=== PATIENT | female | born 1975 | race Two or more races ===

== ENCOUNTER 2024-08-16 02:02 | Emergency (ER) | payer OTHER, SELFPAY ==
--- NOTE | 2024-08-16 | ECG_ITS ---
Test Reason : CHEST DISCOMFORT Blood Pressure : / mmHG Vent. Rate : 088 BPM Atrial Rate : 088 BPM P-R Int : 150 ms QRS Dur : 082 ms QT Int : 348 ms P-R-T Axes : 071 055 043 degrees QTc Int : 421 ms Normal sinus rhythm cannot exclude Anterior infarct , age undetermined ; could be related to body habitus and lead placement Abnormal ECG No previous ECGs available Referred By: Generic ED Physician Electronically Signed By:KIRBY HAMLIN
[2024-08-16 02:07] VITALS: BP 142/78; PULSE 108; RESP 16; TEMP 37.3; O2SAT 98; BMI 25.0
--- OUTSIDE RECORDS SUMMARY | 2024-08-16 02:27 | XMS_ITS | Continuity of Care Document ---
Author Organization [facility] ter Address [address] [place] [phone]- Care Team Providers Care Cloth Spreader Screen Printing Name Role Phone Kayla Choi MD Primary Care Physician Encounter [facility] Date(s): 07/21/21 - 07/21/[address] [address]- Discharge Disposition: A-D/C Home Attending Physician: Radha Hughes MD Admitting Physician: Radha Hughes MD Referring Physician: Not on Staff, Referring MD Allergies, Adverse Reactions, Alerts Substance Reaction Severity Status aspirin Active Motrin Active Medications amoxicillin 500 mg oral capsule 2 capsule = 1,000 mg, By Mouth, 3 times a day, for 5 days, # 30 capsule, 0 Refills, Acute 07/26/21 10:18:00 EDT, 07/21/21 10:18:00 EDT, [id number], Partial fill upon patient request if the prescription is for a schedule II opioid drug., 59, kg... Start Date: 07/21/21 Stop Date: 07/26/21 Status: Ordered Azithromycin 5 Day Dose Pack 250 mg oral tablet 1 pack/packet, By Mouth, Once, # 6 tablet, 0 Refills, Soft Stop, 07/21/21 10:17:00 EDT, Tablet, [id number], Partial fill upon patient request if the prescription is for a schedule II opioid drug., 59, kg, 12/30/19 6:17:00 EST, Dry Weight Start Date: 07/21/21 Status: Ordered Bactrim DS 800 mg-160 mg oral tablet 2 tablet, By Mouth, 2 times a day, # 28 tablet, 0 Refills, Maintenance, Tablet Start Date: 05/24/13 Stop Date: 05/31/13 Status: Ordered famotidine 20 mg oral tablet 1 tablet = 20 mg, By Mouth, 2 times a day, # 14 tablet, 0 Refills, Maintenance, 01/30/14 5:08:48, Tablet Start Date: 01/30/14 Stop Date: 02/06/14 Status: Ordered Keflex Capsule 500 mg, By Mouth, 3 times a day, Maintenance, 04/10/18 16:42:27 EDT Start Date: 04/10/18 Stop Date: 04/20/18 Status: Ordered Nexium 20 mg oral enteric coated capsule 1 capsule = 20 mg, By Mouth, Daily, # 20 capsule, 0 Refills, Maintenance Start Date: 09/20/12 Status: Ordered Nexium 20 mg oral enteric coated capsule 1 capsule = 20 mg, By Mouth, Daily, # 20 capsule, 0 Refills, Maintenance, EC Capsule Start Date: 09/20/12 Status: Ordered omeprazole 20 mg oral delayed release tablet 1 tablet = 20 mg, By Mouth, Daily, # 14 tablet, 0 Refills, Maintenance, 01/30/14 5:08:56, EC Tablet Start Date: 01/30/14 Stop Date: 02/13/14 Status: Ordered Percocet-5/325 325 mg-5 mg oral tablet 1 tablet, By Mouth, Every 4 hours, PRN Pain , Severe, # 18 tablet, 0 Refills, Maintenance Start Date: 06/17/13 Stop Date: 06/20/13 Status: Ordered Percocet-5/325 325 mg-5 mg oral tablet 2 tablet, By Mouth, Every 6 hours, PRN Pain, for breakthrough pain, # 13 tablet, 0 Refills, Maintenance, Tablet Start Date: 03/20/13 Status: Ordered Zofran ODT 4 mg oral tablet, disintegrating See Instructions, PRN Nausea & Vomiting, 1 tablet By Mouth Every 4 hours as needed. May substitute for oral tablets if required by insurance, # 16 Doses, 0 Refills, Maintenance, 01/30/14 5:08:46,Tablet Start Date: 01/30/14 Status: Ordered Results Orders for Microbiology Reports Name Date Group A Strep Screen and Culture 07/21/21 Microbiology Reports TEST:Group A Strep Screen and Culture STATUS:Unauthenticated BODY SITE: SOURCE:THROAT COLLECTED DATE/TIME:07/21/21 9:23 AM Group A Strep Screen and Culture SPECIMEN DESCRIPTION : THROAT SWAB SPECIAL REQUESTS : NONE DIRECT EXAM : RAPID GROUP A RESULT IS NEGATIVE, REFER TO CULTURE RESULT. REPORT STATUS : PRELIMINARY REPORT Radiology Reports * Exam Date Time Procedure Performing Provider Status 07/21/21 5:37 AM Chest Portable Sally Thompson; Aut h (Verified) Notes: (Chest Portable) Reason For Exam: Cough RESULT: Chest Portable Chest Portable Hx of Present Illness: Reports body aches, SOB, sweats chills, runny nose, sinus pressure, cough, no taste and diarrhea for 3wks. Got first dose vaccine last. Had contact with covid + friend.; Reason: Cough; Clinical Question(s): Other: COMPARISON: 06/30/2020 10/15/2020 FINDINGS: LINES AND TUBES: None. LUNGS AND PLEURA: Possible subtle hazy focal airspace disease developing in the mid right chest. Otherwise clear lungs. No focal consolidation. Large pleural effusion. No pneumothorax. HEART, MEDIASTINUM AND JACY: Heart is normal in size. Normal upper mediastinal and hilar contour. BONES AND SOFT TISSUES: No acute abnormality. Multiple surgical clips in the right upper quadrant/epigastrium. IMPRESSION: Possible subtle developing focal airspace disease in the mid right chest, which could be secondary to early or atypical pneumonia. A [place] message has been communicated via the [employer] system on 07/21/2021 8:44 AM, Message ID [id number]. WSN: [id number] Ordering Physician: Stephanie Jimenez Dictated By: Rinku Gill MD Dictated Date/Time: 07/21/21 8:44 am Reviewed By: Rinku Gill MD Signed By: Rinku Gill MD Signed Date/Time: 07/21/21 8:44 am Transcribed By: SOTERO Transcribed Date/Time: 07/21/21 8:41 am Vital Signs Most recent to oldest [Reference Range]: 1 2 3 Oxygen Saturation [94-100 %] 100 % (07/21/21 10:21 AM) 100 % (07/21/21 9:28 AM) 100 % (07/21/21 8:10 AM) Pulse Rate [55-90 bpm] 68 bpm (07/21/21 10:21 AM) 74 bpm (07/21/21 9:28 AM) 62 bpm (07/21/21 8:10 AM) Blood Pressure [90-138/55-84 mm Hg] 102/65mm Hg (07/21/21 10:21 AM) 100/52mm Hg (07/21/21 9:28 AM) 108/63mm Hg (07/21/21 8:10 AM) Respiratory Rate [16-30 br/min] 18 br/min (07/21/21 10:21 AM) 16 br/min (07/21/21 9:28 AM) 15 br/min *L* (07/21/21 8:10 AM) Temperature [96.8-100.4 DegF] 98.0 DegF (07/21/21 8:10 AM) 98.5 DegF (07/21/21 5:00 AM) Mode of Delivery (Oxygen) Room air (07/21/21 10:21 AM) Room air (07/21/21 9:28 AM) Room air (07/21/21 8:10 AM) Blood pressure sites Arm, left (07/21/21 10:21 AM) Arm, left (07/21/21 9:28 AM) Arm, left (07/21/21 8:10 AM) Temperature Route Oral (07/21/21 8:10 AM) Oral (07/21/21 5:00 AM)
--- OUTSIDE RECORDS SUMMARY | 2024-08-16 02:27 | XMS_ITS | Continuity of Care Document ---
Author Organization [facility] ter Address [address] [place] [address]- Care Team Providers Care Coater Hand Name Role Phone Jimbo NIETO, Kayla Dos Santos Primary Care Physician Encounter [facility] [place] Date(s): 10/15/19 - 10/15/[address] [address]- [facility] Encounter Diagnosis Bronchitis(Final) - 10/15/19 Acute laryngopharyngitis(Final) - 10/15/19 Discharge Disposition: A-D/C Home Attending Physician: Gurpreet NIETO, Yuliya Santana Admitting Physician: Yuliya Vázquez MD Referring Physician: Not on Staff, Referring MD Allergies, Adverse Reactions, Alerts Substance Reaction Severity Status aspirin Active Motrin Active Medications Bactrim DS 800 mg-160 mg oral tablet [...] Date Group A Strep Screen and Culture 9 Microbiology Reports TEST:Group A Strep Screen and Culture STATUS:Unauthenticated BODY SITE: SOURCE:THROAT COLLECTED DATE/TIME:10/15/19 6:45 AM Group A Strep Screen and Culture SPECIMEN DESCRIPTION : THROAT SWAB SPECIAL REQUESTS : NONE DIRECT EXAM : RAPID GROUP A RESULT IS NEGATIVE, REFER TO CULTURE RESULT. REPORT STATUS : PRELIMINARY REPORT Radiology Reports * Exam Date Time Procedure Performing Provider Status 10/15/19 8:03 AM Chest 2 Views Frontal and Lat Lor Vincent; Auth (Verified) Notes: (Chest 2 Views Frontal and Lat) Reason For Exam: Shortness of Breath RESULT: Chest 2 Views Frontal and Lat Chest 2 Views Frontal and Lat INDICATION / CLINICAL QUESTION: chest pain, SOB, throat pain, and feeling unwell since Sunday. Reports was seen at [facility] on sunday and given albuterol and prednisone but continues with chest pain andSOB; COMPARISON: None. FINDINGS: LINES AND TUBES: None. LUNGS AND PLEURA: Clear lungs. Normal pulmonary vascularity. No pleural effusion. No pneumothorax. HEART, MEDIASTINUM AND JACY: Normal. BONES AND SOFT TISSUES: Upper abdominal surgical clips but otherwise normal. IMPRESSION: Normal. WSN: [id number] Dictated By: Kyle Justin MD Dictated Date/Time: 10/15/19 8:06 am Reviewed By: Kyle Justin MD Signed By: Kyle Justin MD Signed Date/Time: 10/15/19 8:06 am Transcribed By: SOTERO Transcribed Date/Time: 10/15/19 8:04 am Vital Signs Most recent to oldest [Reference Range]: 1 2 Oxygen Saturation [94-100 %] 99 % (10/15/19 10:38 AM) 100 % (10/15/19 6:45 AM) Pulse Rate [55-90 bpm] 75 bpm (10/15/19 10:38 AM) 77 bpm (10/15/19 6:45 AM) Blood Pressure [90-138/55-84 mm Hg] 114/ 65mm Hg (10/15/19 10:38 AM) 121/84mm Hg (10/15/19 6:45 AM) Respiratory Rate [16-30 br/min] 16 br/mi n (10/15/19 10:38 AM) 18 br/min (10/15/19 6:45 AM) Temperature [96.8-100.4 DegF] 98.0 DegF (10/15/19 6:45 AM) Mode of Delivery (Oxygen) Room air (10/15/19 10:38 AM) Room air (10/15/19 6:45 AM) Blood pressure sites Arm, right (10/15/19 10:38 AM) Arm, left (10/15/19 6:45 AM) Temperature Route Oral (10/15/19 6:45 AM)
--- OUTSIDE RECORDS SUMMARY | 2024-08-16 02:27 | XMS_ITS | Continuity of Care Document ---
Author Organization [facility] ter Address [address] [place] [phone]- Care Team Providers Care Director Fixed Income Name Role Phone Jimbo NIETO, Kayla Dos Santos Primary Care Physician Encounter [facility] [place] Date(s): 12/30/19 - 12/30/[address] [address]- [facility] Encounter Diagnosis Viral syndrome(Final) - 12/30/19 Discharge Disposition: A-D/C Home Attending Physician: Shu Alexander MD Admitting Physician: Shu Alexander MD Referring Physician: Not on Staff, Referring [...] 01/30/14 5:08:46,Tablet Start Date: 01/30/14 Status: Ordered Vital Signs Most recent to oldest [Reference Range]: 1 2 3 Weight 59 kg (12/30/19 6:17 AM) Oxygen Saturation [94-100 %] 100 % (12/30/19 1:38 PM) 100 % (12/30/19 12:08 PM) 100 % (12/30/19 8:17 AM) Pulse Rate [55-90 bpm] 68 bpm (12/30/19 1:38 PM) 76 bpm (12/30/19 12:08 PM) 69 bpm (12/30/19 8:17 AM) Blood Pressure [90-138/55-84 mm Hg] 98/50mm Hg (12/30/19 1:38 PM) 104/55mm Hg (12/30/19 12:08 PM) 104/56mm Hg (12/30/19 8:17 AM) Respiratory Rate [16-30 br/min] 16 br/min (12/30/19 1:38 PM) 14 br/min *L* (12/30/19 12:08 PM) 16 br/min (12/30/19 8:17 AM) Temperature [96.8-100.4 DegF] 98.2 DegF (12/30/19 12:08 PM) 97.8 DegF (12/30/19 8:17 AM) 97.9 DegF (12/30/19 6:17 AM) Mode of Delivery (Oxygen) Room air (12/30/19 1:38 PM) Room air (12/30/19 12:08 PM) Room air (12/30/19 8:17 AM) Temperature Route Oral (12/30/19 12:08 PM) Oral (12/30/19 8:17 AM) Oral (12/30/19 6:17 AM) Dry Weight 59 kg (12/30/19 6:17 AM)
--- OUTSIDE RECORDS SUMMARY | 2024-08-16 02:27 | XMS_ITS | Continuity of Care Document ---
Author Organization [facility] Address [address] [place] [phone]- Care Team Providers Care Aircraft Skin Burnisher Name Role Phone Jimbo NIETO, Kayla Dos Santos Primary Care Physician [place] [facility] [place] 12/12/23 - 12/12/[address] [address] Attending Physician: Susi Garland NP Allergies, Adverse Reactions, Alerts Substance Reaction Severity Status aspirin Active Motrin Active Medications Azithromycin 5 Day Dose Pack 250 mg oral tablet 1 pack/packet, By Mouth, Once, # 6 tablet, 0 Refills, Soft Stop, 07/21/21 10:17:00 EDT, Tablet, [id number], Partial fill upon patient request if the [...] 01/30/14 5:08:46,Tablet Start Date: 01/30/14 Status: Ordered Patient Care team information Care Team Personnel Name: Jimbo NIETO , Kayla Dos Santos Position: S Physician - Infectious Disease Member Role: PCP Address: Address: [address] [place] [address]
[2024-08-16 03:08] LABS: IDNOW Serial# 08D9AD1C; Strep A Nucleic Acid Positive (Negative)
[2024-08-16 03:32] LABS: Influenza A PCR NEGATIVE (Negative); Influenza B PCR NEGATIVE (Negative); Resp Syncy Virus RNA Qual PCR NEGATIVE (Negative); SARS COV2 PCR INHOUSE NEGATIVE (Negative)
--- NOTE | 2024-08-16 03:51 | ED.CHESTPAIN ---
HPI - Chest Pain General Chief Complaint: Chest Pain Stated Complaint: fever Time Seen by Provider: 08/16/24 03:36 Source: patient Mode of arrival: ambulatory Limitations: no limitations History of Present Illness ED Provider: Dr. Guzmán HPI narrative: patient is a 48yo female with no significant PMHx who presents with not feeling well for the past 5 days. She states that she has had headache, sore throat and chest pain. She comes to the ED tonight because her Apple watch was reading above 110 all night. Related Data Previous Rx's ?Medication ?Instructions ?Recorded amoxicillin 875 mg tablet 875 mg PO BID #20 tabs 08/16/24 Allergies Allergy/AdvReac Type Severity Reaction Status Date / Time aspirin Allergy Unknown tachycardia Uncoded 08/16/24 02:11 ,anxiety Review of Systems Review of Systems: Yes all other systems are reviewed and are negative Neurologic: Denies Sensory deficit (Neuro) [facility] Social History Social History Smoked in Last 30 Days: No Use of substances other than those prescribed or required for medical reasons: No Advance Directives: No Advance Directives Information Provided: No Do you have a plan to hurt others: No Plan Physical Exam Vital Signs: Vital Signs: Last Vital Signs Temp 99.1 F 08/16/24 02:07 Pulse 108 H 08/16/24 02:07 Resp 16 08/16/24 02:07 BP 142/78 H 08/16/24 02:07 Pulse Ox 98 08/16/24 02:07 O2 Del Method Room Air 08/16/24 02:07 BMI result Body Mass Index 25.0 Const: General: healthy appearing Nutritional Appearance: average body habitus Orientation/consciousness: oriented to person and patient oriented x3 Limitations: no limitations HEENT: Head: Yes normal to inspection Ears: external ears normal General nose exam: Normal external nose present Mouth: Normal oral and palatal mucosa present and oropharynx normal Throat: Yes posterior oropharynx normal Eyes: General: appearance normal, both eyes and all related structures Neck: Other: supple Neck: Yes normal visual inspection Chest: Chest palpation & inspection: normal inspection of the chest Resp: Auscultation: clear to auscultation bilaterally Cardio: Jugular venous distension: no JVD Rate: regular rate Rhythm: regular rhythm Heart sounds: S1 normal heart sound present and S2 normal heart sound present GI: Inspection: Yes normal to inspection Palpation (GI): Soft to palpation, nontender and No hepatosplenomegaly present Auscultation: normal bowel sounds : General: Yes no CVA tenderness Back/Spine/Pelvis: Back: no CVA tenderness Skin: General skin exam: no rashes or lesions noted Neuro: General: oriented to person and patient oriented x3 Cranial nerves: Yes CN's II-XII intact bilaterally Motor exam (neuro): 5/5 motor strength present throughout Sensory Exam: No Sensory deficit (Neuro) Extrem: General: Yes normal to inspection Psych: Appearance: grossly normal Course Reevaluation(s) Reevaluation #1: Patient with tactile fever, tachycardia and now positive strep, will dc on amoxicillin for strep throat. Time: 03:56 Medications Administered Discontinued Medications Generic Name Dose Route Start Last Admin Trade Name Freq PRN Reason Stop Dose Admin Amoxicillin 500 mg 08/16/24 03:53 08/16/24 03:59 Amoxicillin 500 Mg Capsule PO 08/16/24 03:54 500 mg ONCE ONE Administration Medical Decision Making Differential Diagnosis Differential Diagnoses: The differential diagnosis associated with the presentation includes (cardiac arrhythmia, flu, covid, rsv, strep throat, tachycardia) Lab Data Labs: Lab Results 08/16/24 08/16/24 Range/Units 02:48 02:49 Influenza Type A (PCR) NEGATIVE (Negative) Influenza Type B (PCR) NEGATIVE (Negative) RSV RNA Qual (PCR) NEGATIVE (Negative) SARS-CoV-2 RNA (RT-PCR) NEGATIVE (Negative) S. pyogenes GrpA PAT Positive A (Negative) Independent Interpretation I performed an independent interpretation of an: EKG (sinus [address] or twave changes) Discharge Plan Discharge Clinical Impression: Strep pharyngitis, Atrial tachycardia Patient Disposition: Home, Self-Care Instructions: Pharyngitis (ED), Strep Throat (ED) Prescriptions: New amoxicillin 875 mg tablet 875 mg PO BID Qty: 20 0RF Referrals: Physician,None [Primary Care Provider] - 1 week Print Language: Arabic
[2024-08-16] MEDS: Amoxicillin 500 MG CAPSULE PO (03:59)
--- NOTE | 2024-08-16 04:00 | PC.NURSE ---
pt medicated per mar, provider into discuss discharge plan.
[2024-08-16 04:04] VITALS: BP 110/64; PULSE 85; RESP 16; TEMP 37.4; O2SAT 98
--- NOTE | 2024-08-16 04:06 | PC.NURSE ---
Reviewed discharge instruction with pt, pt verbalized understanding. no sign distress upon discharge. Pt ambulating with a steady gait.
== END 2024-08-16 04:08 | disposition home or self-care (01) ==
PROVIDERS: Emergency Provider Emergency Medicine
DX: J02.0 Streptococcal pharyngitis (principal); I47.19 Other supraventricular tachycardia; R50.9 Fever, unspecified; Z03.818 Encounter for observation for suspected exposure to other biological agents ruled out; R05.9 Cough, unspecified
CPT/HCPCS: 0241U; 87651; 93005; 99283; 99284

== ENCOUNTER → 2024-08-16 02:35 | Outpatient (BNV) | payer OTHER, SELFPAY | PROVIDERS: Emergency Provider Emergency Medicine; Visit Provider Internal Medicine | DX: R94.31 Abnormal electrocardiogram [ECG] [EKG] (principal) | CPT/HCPCS: 93010 ==

== ENCOUNTER 2025-02-17 01:16 | Emergency (ER) | payer OTHER, SELFPAY ==
--- NOTE | ~2025-02-17 | XR_ITS ---
CLINICAL HISTORY: abd pain, no bm x 5 days 1 view abdomen Comparison: None Findings: Mild stool burden. No bowel obstruction. No pneumoperitoneum or pneumatosis. No abnormal calcifications. No acute fractures. IMPRESSION: Mild stool burden. No bowel obstruction. This document has been electronically signed by: Arielle Whittington MD on 02/17/2025 02:57:42
[2025-02-17 01:27] VITALS: BP 133/78; PULSE 66; RESP 16; TEMP 36.7; O2SAT 99; BMI 25.6
[2025-02-17 01:53] LABS: Hematocrit 38.6 % (37.0-47.0); Hemoglobin 12.1 g/dl (12.0-16.0); Mean Corpuscular HGB Conc 31.3 g/dl (31.0-35.0); Mean Corpuscular Hemoglobin 28.9 pg (27.0-33.0); Mean Corpuscular Volume 92.1 fL (80.0-98.0); Mean Platelet Volume 13.9 fL (9.4-12.3); Platelet Count 172 X10*3/uL (160-400); Red Blood Count 4.19 X10*6/uL (4.20-5.50); Red Cell Distribution Width 12.7 % (11.0-16.0)
[2025-02-17 01:57] LABS: PLT ABN DIST 1; WBC ABN SCTR FOR CBC 1; White Blood Count 9.4 X10*3/uL (4.8-10.8)
[2025-02-17 02:03] LABS: Alanine Aminotransferase 16 U/L (0-31); Albumin Level 4.3 g/dL (3.5-5.0); Anion Gap 13 (12-20); Aspartate Amino Transferase 19 U/L (5-31); Bilirubin Total 0.8 mg/dL (0.0-1.0); Blood Urea Nitrogen 8 mg/dL (9-16); Calcium 9.1 mg/dL (8.4-10.2); Carbon Dioxide 25 mmol/L (22-29); Chloride 106 mmol/L (96-108); Creatinine Clr Calc Pharmacy 83.6; Estimated Glomerular Filt Rate > 60; Glucose Random 91 mg/dL (60-115); Lipase 19 U/L (8-78); Potassium 3.6 mmol/L (3.3-5.1); Sodium 140 mmol/L (135-145); Total Protein 7.3 g/dL (6.5-8.0)
[2025-02-17 02:12] LABS: Basophils Abs Manual 0.1 X10*3/uL (0.0-0.2); Basophils Percent Manual 1 % (0-2); Burr Cells 1+ (0-2) /OIF; Eosinophils Absolute Manual 0.8 X10*3/uL (0.0-0.4); Eosinophils Percent Manual 9 % (0-4); Lymphocytes Absolute Manual 4.6 X10*3/uL (1.2-4.9); Lymphocytes Percent Manual 49 % (20-40); Monocytes Absolute Manual 0.7 X10*3/uL (0.1-1.2); Monocytes Percent Manual 7 % (2-11); Neutrophils Percent Manual 34 % (45-73); RBC Morphology NOTED
[2025-02-17 02:13] LABS: Band Neutrophils Percent 0 % (3-5); Large Platelet PRESENT; Neutrophils Absolute Manual 3.2 X10*3/uL (2.0-8.3); Platelet Estimate NORMAL (NORMAL); Platelet Morphology Comment NOTED
[2025-02-17 02:30] LABS: Alkaline Phosphatase 60 U/L (39-117)
--- NOTE | 2025-02-17 02:42 | ED_ITS ---
HPI - Abdominal Pain General Chief Complaint: Abdominal Pain Stated Complaint: stomach pain Time Seen by Provider: 02/17/25 02:02 Source: patient Mode of arrival: ambulatory Limitations: no limitations History of Present Illness ED Provider: Angela Vance NP HPI narrative: Patient is a 41-year-old female who presents emergency department for evaluation. She reports over the past week she began experiencing generalized discomfort and bloating to the abdomen. Typically exacerbated after eating. Had some mild nausea associated with this. She reports that she has not had a bowel movement in the past 5 days, today she took an [id number] bicycle total tablet without having a bowel movement. She states that this evening she experienced a mild pain diffusely across her lower back. She denies fevers, chills, chest pain, shortness of breath, vomiting, diarrhea, hematochezia, melena, dysuria, urinary frequency/urgency/hesitancy, hematuria, pelvic pain or abnormal vaginal discharge. Related Data Previous Rx's ?Medication ?Instructions ?Recorded amoxicillin 875 mg tablet 875 mg PO BID #20 tabs 08/16/24 cefuroxime axetil 250 mg tablet 250 mg PO BID #10 tabs 02/17/25 docusate sodium 100 mg capsule 100 mg PO DAILY #30 caps 02/17/25 (Colace) polyethylene glycol 3350 17 17 g PO DAILY #119 grams 02/17/25 gram/dose oral powder (ClearLax) Allergies Allergy/AdvReac Type Severity Reaction Status Date / Time aspirin Allergy Mild tachycardia Uncoded 02/17/25 01:32 ,anxiety Review of Systems Review of Systems Yes all other systems are reviewed and are negative [facility] Past Medical History Attestation statement: The following information was validated with the patient. Source: old records reviewed Social History Social History Smoked in Last 30 Days: No Use of substances other than those prescribed or required for medical reasons: No Advance Directives: No Advance Directives Information Provided: Yes Do you have a plan to hurt others: No Plan Patient : No Physical Exam ED Vital Signs: Vital Signs - 24 hr 02/17/25 01:27 Temperature 98.1 F Pulse Rate 66 Respiratory Rate 16 Blood Pressure 133/78 Pulse Oximetry 99 Oxygen Delivery Method Room Air BMI result Body Mass Index 25.6 Appearance: Alert.?Oriented to person, place and time. No acute distress.?Normal affect.?? Neck: Normal inspection.? Neck supple.?? CVS: Heart sounds normal. Normal heart rate and rhythm.? Pulses normal.?? Respiratory: No respiratory distress.? Lung sounds clear to auscultation bilaterally?? Abdomen: Soft mild diffuse tenderness. No rigidity or guarding. No rebound tenderness at McBurney's point. Negative psoas sign. Negative Rovsing sign. Negative Chiang sign. No CVAT. Normoactive bowel sounds. No pulsatile mass.?? Back: No rashes or lesions. No midline tenderness, step-offs, deformities. No paraspinal muscle tenderness or spasms. Skin: Skin warm and dry.? Normal skin color.? Extremities: No lower extremity edema.? Neuro: Moves all extremities spontaneously. Sensation intact bilaterally. Ambulates with normal steady gait. Medical Decision Making Medical Decision Making MDM Narrative: Patient is a 49-year-old female who presents emergency department for evaluation of abdominal pain/bloating as per HPI and lack of bowel movement over the past 5 days. Abdominal examination reveals mild diffuse tenderness, no CVA tenderness, overall without signs of systemic toxicity found to be afebrile without tachycardia, no hypotension. Examination not consistent with acute abdomen, no peritoneal signs; no tenderness upon light palpation, no rebound tenderness, no guarding, no percussive tenderness. Low suspicion at this time for acute surgical abdomen. No associated chest pain shortness of breath or URI symptoms to suggest pneumonia, no clinical evidence of DVT or personal history of VTE/malignancy to suggest pulmonary embolism. No high-risk past medical history to suggest myocardial infarction and is without chest pain, less likely AAA, aortic dissection. No distinct right upper quadrant abdominal tenderness upon palpation, negative Chiang sign, lower suspicion for acute hepatobiliary etiology, normal LFTs and lipase. Denies excessive alcohol consumption, history of diabetes, lower suspicion acute pancreatitis. No rebound tenderness at McBurney's point, rigidity, guarding to suggest acute appendicitis. No tenderness of the left lower quadrant nor associated nausea, vomiting, diarrhea, hematochezia or melena to suggest diverticulitis or GI bleed. No appreciable hernia to suggest strangulation/incarceration. Lower suspicion for bowel obstruction. No distention or rigidity to suggest GI perforation. She denied any notable symptoms however she does have 1+ leukocyte esterase urine WBCs and 2+ urine bacteria present without squamous epithelial cells, possibly be secondary to urinary tract infection, will send prescription for cefuroxime to pharmacy as well. KUB revealing a mild stool burden, does not appear to have any food bolus in the rectal vault that would require disimpaction. She will be provided with MiraLax and senna/docusate in the emergency department. Differential Diagnosis Differential Diagnoses: The differential diagnosis associated with the presentation includes (See narrative above) Admission/Observation Consideration of admission/observation: Escalation of care including admission/observation considered (See narrative above ) Lab Data MDM Lab Attestation statement: I reviewed the patient's lab results. (See above) Leukocytosis or anemia. No thrombocytopenia. No electrolyte derangement. No CATHI. LFTs unremarkable. 02/17/25 01:37 02/17/25 01:37 Labs: Lab Results 02/17/25 02/17/25 Range/Units 01:37 03:07 WBC 9.4 (4.8-10.8) X10*3/uL RBC 4.19 L (4.20-5.50) X10*6/uL Hgb 12.1 (12.0-16.0) g/dl Hct 38.6 (37.0-47.0) % MCV 92.1 (80.0-98.0) fL MCH 28.9 (27.0-33.0) pg MCHC 31.3 (31.0-35.0) g/dl RDW 12.7 (11.0-16.0) % Plt Count 172 (160-400) X10*3/uL MPV 13.9 H (9.4-12.3) fL Immature Gran % (Auto) Cancelled Neut % (Auto) Cancelled Lymph % (Auto) Cancelled Daniels % (Auto) Cancelled Eos % (Auto) Cancelled Baso % (Auto) Cancelled Lymph # (Auto) Cancelled Daniels # (Auto) Cancelled Eos # (Auto) Cancelled Baso # (Auto) Cancelled Abs Immat Gran (auto) Cancelled Absolute Neuts (auto) Cancelled Absolute Nucleated RBC 0.000 (0.0-0.012) X10*3/uL Nucleated RBC % (auto) 0.0 (0.0-0.2) /100WBC Neutrophils % (Manual) 34 L (45-73) % Band Neutrophils % 0 L (3-5) % Lymphocytes % (Manual) 49 H (20-40) % Monocytes % (Manual) 7 (2-11) % Eosinophils % (Manual) 9 H (0-4) % Basophils % (Manual) 1 (0-2) % Abs Neuts (Manual) 3.2 (2.0-8.3) X10*3/uL Lymphocytes # (Manual) 4.6 (1.2-4.9) X10*3/uL Monocytes # (Manual) 0.7 (0.1-1.2) X10*3/uL Eosinophils # (Manual) 0.8 H (0.0-0.4) X10*3/uL Basophils # (Manual) 0.1 (0.0-0.2) X10*3/uL Platelet Estimate NORMAL (NORMAL) Large Platelets PRESENT Plt Morphology Comment NOTED RBC Morphology NOTED [place] Cells 1+ (0-2) /OIF Sodium 140 (135-145) mmol/L Potassium 3.6 (3.3-5.1) mmol/L Chloride 106 (96-108) mmol/L Carbon Dioxide 25 (22-29) mmol/L Anion Gap 13 (12-20) BUN 8 L (9-16) mg/dL Creatinine 0.72 (0.5-1.4) mg/dL Estim Creat Clear Calc 83.6 Estimated GFR > 60 Random Glucose 91 (60-115) mg/dL Calcium 9.1 (8.4-10.2) mg/dL Total Bilirubin 0.8 (0.0-1.0) mg/dL AST 19 (5-31) U/L ALT 16 (0-31) U/L Alkaline Phosphatase 60 (39-117) U/L Total Protein 7.3 (6.5-8.0) g/dL Albumin 4.3 (3.5-5.0) g/dL Lipase 19 (8-78) U/L Urine Color Yellow Urine Appearance Clear Urine pH 5.5 (5.0-9.0) Ur Specific [place] 1.020 (1.005-1.025) Urine Protein Negative (Neg-Trace) mg/dL Urine Glucose (UA) Negative (Negative) mg/dL Urine Ketones Negative (Negative) mg/dL Urine Blood Moderate (2+) H (Negative) Urine Nitrite Negative (Negative) Ur Leukocyte Esterase Small (1+) H (Negative) Urine RBC 0-2 (0-2) /HPF Urine WBC 21-50 H (0-5) /HPF Ur Squamous Epith Cells 0-2 (0-2) /HPF Urine Bacteria 2+ (None Seen) Hyaline Casts 0-2 (0-2) /LPF Urine Test NEGATIVE (NEGATIVE) Radiology Impression Discussion of test interpretation with radiology: I have reviewed the radiologist's reading. Radiologist Impression: 1 view abdomen Comparison: None Findings: Mild stool burden. No bowel obstruction. No pneumoperitoneum or pneumatosis. No abnormal calcifications. No acute fractures. IMPRESSION: Mild stool burden. No bowel obstruction. External Record Review External record reviewed: Outpatient record Discharge Plan Discharge Clinical Impression: Constipation, Urinary tract infection Patient Disposition: Home, Self-Care Instructions: Constipation (DC), Urinary Tract Infection in Women (DC) Additional Instructions: Increase dietary fiber, be sure that you are drinking at least 8 glasses of water daily, 8-12 oz each. I have sent prescription to pharmacy for MiraLax in addition to Colace to take daily to mason helper in bowel movement. Urine testing shows concern for a mild infection, prescription for antibiotic has been sent to your pharmacy please complete the entire course. Follow-up with your primary care doctor. Return with any new or worsening symptoms or concerns. Prescriptions: New polyethylene glycol 3350 [ClearLax] 17 gram/dose powder 17 g PO DAILY Qty: 119 0RF docusate sodium [Colace] 100 mg capsule 100 mg PO DAILY Qty: 30 0RF cefuroxime axetil 250 mg tablet 250 mg PO BID Qty: 10 0RF No Action amoxicillin 875 mg tablet 875 mg PO BID Qty: 20 0RF Referrals: Physician,None [Primary Care Provider] - Print Language: Belarusian
[2025-02-17 03:17] LABS: Appearance Urine Clear; Color Urine Yellow; Glucose Urine UA Negative (Negative); Leukocyte Esterase Urine Small (1+) (Negative); Nitrite Urine Negative (Negative); PH 5.5 (5.0-9.0); UMIC TRIGGER UACC YES; Urine Blood Moderate (2+) (Negative); Urine Ketones Negative (Negative); Urine Protein Negative (Neg-Trace)
[2025-02-17 03:18] LABS: Urine Pregnancy NEGATIVE (NEGATIVE)
[2025-02-17 03:19] LABS: UPreg QC Valid YES
[2025-02-17 03:37] LABS: Bacteria Urine 2+ (None Seen); Hyaline Casts Urine 0-2 /LPF (0-2); RBC Urine 0-2 /HPF (0-2); Squamous Epithelial Cell Urine 0-2 /HPF (0-2); UACC Culture Trigger YES; WBC Urine 21-50 /HPF (0-5)
[2025-02-17] MEDS: Sennosides/Docusate Sodium TABLET 1 TAB PO (03:42)
[2025-02-17] MEDS: polyethylene glycoL 3350 17 GM POWD.PACK PO (03:42)
[2025-02-17 03:54] VITALS: BP 106/63; PULSE 66; RESP 14; TEMP 36.6; O2SAT 99
[2025-02-17 04:06] VITALS: BP 106/63; PULSE 66; RESP 14; TEMP 36.6; O2SAT 99
== END 2025-02-17 04:07 | disposition home or self-care (01) ==
PROVIDERS: Nurse Practitioner Family; Emergency Provider Emergency Medicine
DX: K59.00 Constipation, unspecified (principal); N39.0 Urinary tract infection, site not specified; Z79.899 Other long term (current) drug therapy
CPT/HCPCS: 36415; 74018; 80053; 81001; 81025; 83690; 85007; 85027; 87086; 87088; 87186; 99284

== ENCOUNTER → 2025-02-17 02:12 | Outpatient (BNV) | payer OTHER, SELFPAY | PROVIDERS: Visit Provider Radiology Diagnostic Radiology | DX: R10.9 Unspecified abdominal pain (principal) | CPT/HCPCS: 74018 ==

== ENCOUNTER 2025-09-21 02:10 | Emergency (ER) | payer OTHER, SELFPAY ==
--- NOTE | ~2025-09-21 | XR_ITS ---
CLINICAL HISTORY: pain 3 views cervical spine Comparison: None provided Findings: Mild to moderate multilevel marginal osteophyte formation is seen. There is mild loss of anterior vertebral body height at C3, C4, and C5. Alignment is within normal limits. The prevertebral soft tissues appear normal. IMPRESSION: 1. [id number] degenerative changes in the cervical spine with mild loss of anterior vertebral body height from C3-C5. This document has been electronically signed by: Elias Herndon on 09/21/2025 06:19:57
--- NOTE | ~2025-09-21 | XR_ITS ---
CLINICAL HISTORY: pain 3 view left shoulder Comparison: None provided Findings: No fractures or dislocations. Soft tissue structures appear within normal limits. IMPRESSION: No acute osseous abnormality is identified. This document has been electronically signed by: Elias Herndon on 09/21/2025 06:20:22
[2025-09-21 02:18] VITALS: BP 126/65; PULSE 81; RESP 16; TEMP 36.8; O2SAT 100; BMI 26.8
--- NOTE | 2025-09-21 02:23 | ECG_ITS ---
Test Reason : LEFT ARM PAIN Blood Pressure : */* mmHG Vent. Rate : 78 BPM Atrial Rate : 78 BPM P-R Int : 142 ms QRS Dur : 80 ms QT Int : 374 ms P-R-T Axes : 76 59 45 degrees QTcB Int : 426 ms Normal sinus rhythm with sinus arrhythmia Normal ECG When compared with ECG of 16-Aug-2024 02:35, No significant change was found Referred By: Generic ED Physician Electronically Signed By: David Corrales
--- OUTSIDE RECORDS SUMMARY | 2025-09-21 02:29 | XMS_ITS | Clinical Summary ---
Author Organization [facility] [address] [facility] Address [address] [place] [phone] Phone Care Team Providers Care Occupancy Specialist Name Role Phone Bella Lugo MD Primary Care Pr ovider Allergies Active Allergy Reactions Criticality Noted Date Comments Ibuprofen Anaphylaxis High 07/24/2013 Medications fluticasone propionate (FLONASE) 50 mcg/actuation nasal spray 2 Sprays by Nasal route daily. 4 Active loratadine (CLARITIN) 10 mg tablet Take 1 Tablet by mouth daily. 4 Active lactulose (CHRONULAC) solutionIndicati ons:Chronic idiopathic constipation TAKE 2.5 ML BY MOUTH A DIARIO 225 mL 1 5 Active omeprazole (PriLOSEC) [address] capsule Take 1 capsule (20 mg total) by mouth 1 (one) time each day. Do not crush or chew. 90 each 1 5 025 Active polyethylene glycol (Golytely) 236-22.74-6.74 -5.86 gram solution Take 4L by mouth once for one dose. May substitue any PEG. Starting at 2PM the day before your procedure drink 1 8oz glasses at your own pace until you complete half of the gallon. Finish 2nd half of the gallon at 8PM. 4000 mL 5 Active bisacodyL (DULCOLAX) 5 mg EC tablet Take 2 tablets by mouth right before beginning bowel prep. See instructions provided by the office 2 tablet Active Active Problems Problem Noted Date Diagnosed Date Gastroesophageal reflux disease without esophagi tis 04/21/2025 Pancreatic lesion 03/12/2025 Overview (03/12/2025): Stable . Repeat CT or MRI in one year (february 2026) Hiatal hernia 03/12/2025 Overview (03/12/2025): small Left nephrolithiasis 03/12/2025 Overview (03/12/2025): 3mm Liver hemangioma 03/12/2025 Family history of stomach cancer 03/04/2025 Assessment & Plan (03/04/2025 12:11 PM EDT): Orders: CT Abdomen Pelvis wo and w Contrast; Future Chronic idiopathic constipation 03/04/2025 Assessment & Plan (03/04/2025 12:11 PM EDT): Stop MiraLAX and docusate. Start lactulose. Will check TSH. Referred to GI Orders: Ambulatory referral to Gastroenterology; Future lactulose (CHRONULAC) solution; Take 2.5 mL (1.6667 g total) by mouth 1 (one) time each day. Thyroid stimulating hormone with reflex to free t4 and free t3; Future Endometrial polyp 12/05/2023 Overview (11/03/2024): Last Assessment & Plan: No need to intervene as incidental and has regular monthly menses without intermenstrual bleeding. Intramural uterine fibroid 12/05/2023 Overview (11/03/2024): Last Assessment & Plan: Explained that fibroids are very small and not causing sx. Can grow slowly over time. Usually shrink with menopause. No need to follow these very small and likely benign fibroids unless her exam over time shows an enlarged uterus. She agreed. Megan 12/05/2023 Overview (11/03/2024): Last Assessment & Plan: Reviewed US findings and CT findings, as well as ED records with [facility]. I explained that Megan does not require treatment, but if she can take ibuprofen or Tylenol mid cycle to help with the cramping. Left ankle sprain 08/20/2019 Overview (11/03/2024): Follows with [facility] History of abnormal cervical Pap smear 7 Overview (11/03/2024): History of abnormal Pap - 2011 Pap smear negative 2011 at [facility] 2013 Pap neg at [facility] 2016 [facility] Colposcopy 04/2017 = Bx negative 10/2021 Pap neg cytology, + HPV 01/2023 Colpo with biopsy - Benign Last Assessment & Plan: Repeat Pap at upcoming AG. Depression 10/14/2012 Overview (11/03/2024): F/u [place] PPD positive 06/22/2011 Overview (11/03/2024): Patient was fully treated in 2001. Hemorrhoids, external 01/06/2011 Assessment & Plan (03/04/2025 12:11 PM EDT): Will trial Proctofoam. She had hemorrhoids removed in the past. States this occurred about 10 years ago. Referred to colorectal surgery for evaluation for hemorrhoidectomy Orders: hydrocortisone-pramoxine (Proctofoam HC) rectal foam; Insert 1 applicator into the rectum 2 (two) times a day for 7 days. Ambulatory referral to Colorectal Surgery; Future Encounters Date Type Department Care Team Description 08/18/2025 Telephone Adult Medicine [address] [phone] Bella Lugo MD 08/17/2025 Telephone Gastroenterology - [place] [address] [facility] [address] [place] [address] Cleveland Isaacs DO from Last 3 Months Immunizations Immunization Administration Dates Next Due Influenza Quadravalent, MDCK , 0.5ml, with preservative (Flucelvax) 6mo and older 07/13/2021,09/05/2019,07/12/2018 Influenza trivalent, 0.5mL, preservative free (Fluarix; FluLaval; Fluzone) ages 6mo and older (Afluria) 3 years and older 10/12/2016,10/01/2014 Moderna SARS-CoV-2 COVID-19, mRNA, LNP-S, preservative free 08/10/2021 Tdap Tetanus diptheria acell ular pertussis (Boostrix; Adacel) 7yo and older 03/27/2024,06/22/2011 Surgical History Surgery Date Site/Laterality Comments CHOLECYSTECTOMY PROCEDURE: HISTORICAL CHOLECYSTECTOMY BREAST LUMPECTOMY PROCEDURE: ---- BREAST LUMP BIOPSY ----; COMMENT: Dr Eddy and the biopsy was normal. Left Breast SECTION PROCEDURE: HISTORICAL BREAST BIOPSY Right PROCEDURE: BX BREAST; PERC NEEDLE CORE W/IMAG GUID; COMMENT: b9 OTHER SURGICAL HISTORY PROCEDURE: CT UNLISTED PX ABDOMEN MUSCULOSKELETAL SYSTEM; COMMENT: abdominoplasty CHOLECYSTECTOMY 1999 PROCEDURE: CT LAPAROSCOPY SURG CHOLECYSTECTOMY; COMMENT: [facility] OTHER SURGICAL HISTORY 1999 PROCEDURE: CT LIG/TRNSXJ FLP TUBE ABDL/VAG APPR UNI/BI; COMMENT: [facility] Medical History Medical History Date Comments Gastroesophageal reflux disease without esophagi tis 04/21/2025 Family History Medical History Relation Name Comments Breast cancer Aunt m. aunt-dx'd ? maternal No Known Problems Brother Other cancer Father Throat cancer No Known Problems Maternal Grandfather Diabetes Maternal Grandmother Depression Mother Diabetes Mother Osteoporosis Mother No Known Problems Other No Known Problems Paternal Grandfather Stomach cancer Paternal Grandmother No Known Problems Sister No Known Problems Son 1 No Known Problems Son 2 No Known Problems Uncle Blindness Neg Hx Cataracts Neg Hx Glaucoma Neg Hx Macular degeneration Neg Hx Strabismus Neg Hx Relation Name Status Comments Aunt m. aunt-dx'd ? Brother Alive Father tuberculosis, t roath cancer Maternal Grandfather Maternal Grandmother Mother Alive DM, breast prob lems Other Paternal Grandfather Paternal Grandmother Sister Alive Son 1 Alive Son 2 Alive Uncle Social History Tobacco Use Types Packs/Day Years Used Date Smoking Tobacco: Never Smokeless Tobacco: Never Alcohol Use Standard Drinks/Week Comments Yes 0 (1 standard drink = 0.6 oz pur e alcohol) Comments No Sex and Gender Information Value Date Recorded Sex Assigned at Not on file Legal Sex Female 8:25 AM EST Gender Identity Not on file Sexual Orientation Not on file Obstetrics History Para Term AB IAB SAB Ectopic Multiple Livin g Live Births 2 2 2 2 Date Outcome GA Total Labor Labor/2nd/3rd Weight Sex Type Anes PTL Mildred A1 A5 Name Clin Term Term Last Filed Vital Signs Vital Sign Reading Time Taken Comments Blood Pressure 106/59 06/04/2025 10:42 AM EDT Pulse 71 06/04/2025 10:42 AM EDT Temperature 36.6 C (97.8 F) 06/04/2025 10:42 AM EDT Respiratory Rate 16 06/04/2025 10:42 AM EDT Oxygen Saturation 99% 06/04/2025 10:42 AM EDT Inhaled Oxygen Concentration - - Weight 64.9 kg (143 lb) 06/04/2025 10:42 AM EDT Height 157.5 cm (5' 2 ) 06/04/2025 10:42 AM EDT Body Mass Index 26.16 06/04/2025 10:42 AM EDT Plan of Treatment Upcoming Encounters Date Type Department Care Team (Late st Contact Info) Description 10/02/2025 3:00 PM EST Office Visit Adult Medicine [address] [phone] Bella Lugo MD [address] [place] [address] 01/29/2026 3:50 PM EDT Appointment Radiology Department - [address] [phone] Health Maintenance Due Date Last Done Comments Colorectal Cancer Screening: Colonoscopy 1976 Hepatitis B Vaccines (1 of 3 - 19+ 3-dose series) 1995 Social Influencers of Health Screening 10/07/2022 Depression Screening 10/29/2024 03/27/2024 COVID-19 Vaccine ( season) 2025 08/10/2021, 07/13/2021 Influenza Vaccine (#1) 2025 , 09/05/2019, 07/12/2018, Additional history exists Breast Cancer Screening 01/27/2027 01/28/20, 06/10/2022, 02/18/2021, Additional history exists Cervical Cancer Screening: HPV 11/17/2027 11/17/2022 Cholesterol Screening (Lipid Panel) 04/01/2029 04/01/2024, 04/01/2024 DTaP,Tdap,and Td Vaccines (3 - Td or Tdap) 03/27/2034 03/27/2024, 06/22/2011 RSV Immunization Adult Patients (1 - 1-dose 75+ series) 2051 Hepatitis C Screening Completed 06/26/2018 HIV Screening Completed 12/25/2019 HIB Vaccines Aged Out No longer eligi ble based on patient's age to complete this topic HPV Vaccines Aged Out No longer eligi ble based on patient's age to complete this topic Hepatitis A Vaccines Aged Out No long er eligible based on patient's age to complete this topic IPV Vaccines Aged Out No longer eligi ble based on patient's age to complete this topic MMR Vaccines Aged Out No longer eligi ble based on patient's age to complete this topic Meningococcal ACWY Vaccine Aged Out N o longer eligible based on patient's age to complete this topic Meningococcal B Vaccine Aged Out No l onger eligible based on patient's age to complete this topic Pneumococcal Vaccine: Pediatrics (0 to 5 Years) and At-Risk Patients (6 to 49 Years) Aged Out No longer eligible based on patient's age to complete this topic RSV Immunization Patients Under 20 months Aged Out No longer eligible based on patient's age to complete this topic Varicella Vaccines Aged Out No longer eligible based on patient's age to complete this topic Procedures Procedure Name Priority Date/Time Associated Diagnosis Comments MG MAMMO DIGITAL SCREENING W OTONIEL BILAT Routine 01/27/2025 3:39 PM EDT Encounter for screening mammogram for breast cancer LIPID PANEL Routine 04/01/2024 HM DEPRESSION SCREENING Routine 03/27/2024 HPV Routine 11/17/2022 HIV SCREENING Routine 12/25/2019 HEPATITIS C SCREENING Routine 06/26/2018 from Last 3 Months or Most Recently Relevant to Health Maintenance Results * MG Mammo Digital Screening w Otoniel bilat (01/27/2025 3:39 PM EDT) Anatomical Region Laterality Modality Breast Bilateral Mammography 01/28/2025 9:42 AM EDT Impressions 01/28/2025 9:43 AM EDT No mammographic evidence of malignancy. BREAST DENSITY: C - The breasts are heterogeneously dense which may obscure small masses. BI-RADS CATEGORY: 1 - NEGATIVE RECOMMENDATION: Screening bilateral mammogram is recommended in 1 year. MAMMO LOCATION: [facility], [address] [place] [address], [id number], . -------- FINAL REPORT -------- Dictated By: Maeve Carlos Dictated Date: 01/28/2025 09:42 ET Assigned Physician: Maeve Carlos Reviewed and Electronically Signed By: Maeve Carlos Signed Date: 01/28/2025 09:43 ET Workstation ID: [id number] Transcribed By: Self Edit Transcribed Date: 01/28/2025 09:42 ET Narrative 01/28/2025 9:43 AM EDT EXAM: Screening Mammogram CLINICAL: 49 years old, Female, routine annual exam. COMPARISON: 01/05/2023 and as far back as 02/18/2021 TECHNIQUE: Bilateral MLO and CC views were obtained digitally with 3-D mammogram (digital breast tomosynthesis). Computer-aided detection was utilized in evaluation of this exam (CAD). FINDINGS: No new suspicious mass, architectural distortion, or suspicious calcifications. Procedure Note Maeve Carlos MD - 01/28/2025 EXAM: Screening Mammogram CLINICAL: 49 years old, Female, routine annual exam. COMPARISON: 01/05/2023 and as far back as 02/18/2021 TECHNIQUE: Bilateral MLO and CC views were obtained digitally with 3-Dmammogram (digital breast tomosynthesis). Computer-aided detection wasutilized in evaluation of this exam (CAD). FINDINGS: No new suspicious mass, architectural distortion, or suspiciouscalcifications. IMPRESSION: No mammographic evidence of malignancy. BREAST DENSITY: C - The breasts are heterogeneously dense which mayobscure small masses. BI-RADS CATEGORY: 1 - NEGATIVE RECOMMENDATION: Screening bilateral mammogram is recommended in 1 year. MAMMO LOCATION: [facility], [address] [place] [address], [id number], . -------- FINAL REPORT -------- Dictated By: Maeve Carlos Dictated Date: 01/28/2025 09:42 ET Assigned Physician: Maeve Carlos Reviewed and Electronically Signed By: Maeve Cralos Signed Date: 01/28/2025 09:43 ET Workstation ID: [id number] Transcribed By: Self Edit Transcribed Date: 01/28/2025 09:42 ET Result [facility] Bella Lugo MD IMG BI PROCEDURE S Final Result * Lipid panel (04/01/2024) [facility] LDL/HDL Ratio 2 0 - 4 Triglycerides 53 0 - 150 mg/dL Cholesterol 170 0 - 200 mg/dL HDL 88 >=40 mg/dL LDL Cholesterol 72 0 - 100 mg/dL Blood Venous blood specimen / Unknown Result [facility] Provider LAB BLOOD ORDERABLES Mayi l Result * Depression Screening (03/27/2024) [facility] Depression Screening Abstracted [facility] Provider HEALTH MAINTENANCE Final Result * Cervical Cancer Screening: HPV (11/17/2022) [facility] Cervical Cancer Screening: HPV Positive, Abstracted [facility] Provider HEALTH MAINTENANCE Final Result * HIV Screening (12/25/2019) HIV Screening Abstracted Historical Provider HEALTH MAINTENANCE Final Result * Hepatitis C Screening (06/26/2018) Hepatitis C Screening Abstracted Historical Provider HEALTH MAINTENANCE Final Result from Last 3 Months or Most Recently Relevant to Health Maintenance Insurance [id number] [phone] [facility] [place] [address] Care Teams Occupancy Specialist Relationship Specialty Start Date End Date Bella uLgo MD [address] [facility], [place] PCP - General Internal Medicine 05/26/22
--- OUTSIDE RECORDS SUMMARY | 2025-09-21 02:29 | XMS_ITS | Encounter Summary ---
Author Organization [facility] [place] [address] Care Team Providers Care Steeple Jack Name Role Phone Bella Lugo MD Primary Care Pr ovider Reason for Visit * Reason Onset Date Comments Nasal Congestion 08/18/2025 Cough 08/18/2025 chest congestion 08/18/2025 Encounter Details Date Type Department Care Team (Late st Contact Info) Description 08/18/2025 Telephone Adult Medicine [address] [phone] Bella Lugo MD [address] [place] [address] Social History Tobacco Use Types Packs/Day Years Used Date Smoking Tobacco: Never Smokeless Tobacco: Never Alcohol Use Standard Drinks/Week Comments Yes 0 (1 standard drink = 0.6 oz pur e alcohol) Comments No Sex and Gender Information Value Date Recorded Sex Assigned at Not on file Legal Sex Female 8:25 AM EST Gender Identity Not on file Sexual Orientation Not on file documented as of this encounter Progress Notes * Macarena Lee RN - 08/27/2025 11:04 AM EDT 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 [phone] [place] #[id number] Message left for pt to return call * Jesse Gillis RN - 08/18/2025 12:20 PM EDT Video Production Intern [phone] in mauritian to return call * Tawanna Montiel - 08/18/2025 12:05 PM EDT Patient call requires triage: >Needs an interperature Symptoms patient is presenting: cough, nasal congestion, no taste, chest congestion no fever, ears blocked How long has patient had these symptoms?: couple months For ALL patients calling to schedule any appointment (routine, sick visit, follow up, consult, etc.) in the outpatient setting please ask the following questions: Do you have fever of higher than 101, sore throat with difficulty swallowing or severe shortness ofbreath? no If YES to any of these above symptoms, send a message to triage and do not book. Red dot. If no, an audio or video visit should be booked. Have you had close contact with someone with Coronavirus in the last 14 days? no Have you traveled abroad? no Have you traveled recently to another state outside of [place], [place], [place], [place], [place], [place], [place]? no o If yes, did you quarantine for 14 days or have a negative covid test? no If yes to any of the above, patient is not to be scheduled in office until after 14 day quarantine or negative covid test. If pain or injury related was it due to an accident at work or from a motor vehicle accident? If yes, date of accident/Injury: No If yes, gather 3rd libertarian insurance information [employer] Party Information: not applicable PCP: Bella Lugo MD Payor: [employer] HE[employer] PLAN / Plan: [employer] MED[employer] / Product Type: *No Product type* / documented in this encounter Plan of Treatment Upcoming Encounters Date Type Department Care Team (Late st Contact Info) Description 10/02/2025 3:00 PM EST Office Visit Adult [address] [phone] Bella Lugo MD [address] [place] [address] 01/29/2026 3:50 PM EDT Appointment Radiology Department - [address] [phone] documented as of this encounter Visit Diagnoses Not on filedocumented in this encounter Care Teams Steeple Jack Relationship Specialty Start Date End Date Bella Lugo MD [address] [place], [place] PCP - General Internal Medicine 05/26/22 documented as of this encounter
[2025-09-21 02:52] LABS: Hematocrit 35.9 % (37.0-47.0); Hemoglobin 11.6 g/dl (12.0-16.0); Mean Corpuscular HGB Conc 32.3 g/dl (31.0-35.0); Mean Corpuscular Hemoglobin 29.1 pg (27.0-33.0); Mean Corpuscular Volume 90.0 fL (80.0-98.0); NRBC Abs Auto 0.000 X10*3/uL (0.0-0.012); NRBC Pct Auto 0.0 /100WBC (0.0-0.2); PLT CLUMP 1; Red Blood Count 3.99 X10*6/uL (4.20-5.50)
[2025-09-21 02:57] LABS: WBC ABN SCTR FOR CBC 1
[2025-09-21 03:12] LABS: Troponin-I High Sensitivity < 2.7 ng/L (<3.5-17.0)
--- NOTE | 2025-09-21 03:36 | ED_ITS ---
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 The patient reports that she has had chronic neck pain. She stopped following up with her neurosurgeon ?when they wanted to put me to sleep and do surgery. ? They had previously discussed cortisone injections for her chronic neck pain. This was several years ago. She reports her last couple of days she has had increasing neck pain mostly left-sided radiating to her left shoulder pain 2 hours ago she felt as if her left arm felt ?stuck. ? She also complains of headaches. Denies any fevers, chills pain Denies any chest pain, shortness of breath, palpitations pain Denies any back pain. She denies any personal cardiac history Related Data Previous Rx's ?Medication ?Instructions ?Recorded amoxicillin 875 mg tablet 875 mg PO BID #20 tabs 08/16 cefuroxime axetil 250 mg tablet 250 mg PO BID #10 tabs 02/17/25 docusate sodium 100 mg capsule 100 mg PO DAILY #30 cap s 02/17/25 (Colace) polyethylene glycol 3350 17 17 g PO DAILY #119 grams 0 02/17/25 gram/dose oral powder (ClearLax) cyclobenzaprine 10 mg tablet 10 mg PO TID PRN muscle s pasm #20 09/21/25 tabs Allergies Allergy/AdvReac Type Severity Reaction Status Date / Time aspirin Allergy Mild tachycardia Uncoded 09/21/25 02:22 ,anxiety Review of Systems 2 Constitutional: Constitutional: Denies body ache(s), Denies chills, Denies fever(s), Denies frequent falls and Reports headache(s) Eyes: Eyes: Denies blurry vision, Denies floaters, Denies irritation and Denies itchy eyes ENT: Denies vertigo, Denies dizziness and Reports headache(s) Cardiovascular: Cardiovascular: Denies chest pain and Denies dyspnea on exertion Respiratory: Respiratory: Denies cough and Denies dyspnea on exertion Gastrointestinal: Gastrointestinal: Denies abdominal pain Musculoskeletal: Musculoskeletal: Reports arthralgias, Denies joint swelling, Reports limited range of motion, Denies loss of height, Reports muscle cramps, Denies muscle weakness, Reports numbness, Reports radiating pain into limb, Reports stiffness and Reports tingling Integumentary/Breasts: Skin/Breast: Denies rash Neurologic: Denies vertigo, Denies dizziness, Denies frequent falls, Reports headache(s), Reports numbness and Reports tingling Psychiatric: Psychiatric: Denies anxiety Allergic/Immunologic: Allergic/Immunologic: Denies itchy eyes PMFSH Social History Social History Alcohol intake: current Alcohol intake frequency: holidays/special occasions only Smoked in Last 30 Days: No Use of substances other than those prescribed or required for medical reasons: No Advance Directives: No Advance Directives Information Provided: No Do you have a plan to hurt others: No Plan Patient : No Physical Exam 2 Vital Signs: Vital Signs: Last Vital Signs Temp 98.2 F 09/21/25 06:00 Pulse 80 09/21/25 06:00 Resp 18 09/21/25 06:00 BP 111/62 09/21/25 06:00 Pulse Ox 100 09/21/25 06:00 O2 Del Method Room Air 09/21/25 06:00 BMI result Body Mass Index 26.8 Const: General: healthy appearing, comfortable, no acute distress, alert and awake Nutritional Appearance: well nourished Orientation/consciousness: p atient oriented x3 HEENT: Head: Yes normocephalic and Yes atraumatic Eyes: Eyelids: Yes eyelids normal Conjunctivae: conjunctivae normal S clerae: sclerae normal Corneas: corneas normal Pupils: Equal, round and reactive pupils present EOM: EOMs intact bilaterally Neck: Neck: Yes full ROM Resp: Effort & Inspection: normal respiratory effort, able to speak in complete sentences and not labored Cardio: Rate: regular rate Rhythm: regular rhythm GI: Inspection: No distended Palpation (GI): Soft to palpation, not firm, nontender, no guarding and not rigid Back/Spine/Pelvis: Other: There was some tenderness to the left cervical paraspinous muscle region. There was also tenderness to the left trapezius muscle group. Skin: General skin exam: elasticity normal Neuro: General: patient oriented x3 Cranial nerves: Yes Equal, round and reactive pupils present and Yes Bilaterally intact EOM present Cognition (Neuro): normal cognition Extrem: Other: No obvious deformity to the left upper extremity but there is tenderness to the left medial clavicular joint. Medical Decision Making Medical Decision Making [facility] Narrative: 50-year-old female presents for evaluation of left shoulder pain radiating into the left hand. She complains of numbness and tingling as well as muscle cramps. She reports a history of chronic neck pain. I do suspect that her symptoms today are related to cervical radiculopathy. However given her atraumatic left shoulder pain we will get a cardiac workup including EKG, labs with troponin. We will also obtain an x-ray of the cervical spine and left shoulder to evaluate for osteoarthritis. I have a low suspicion for fracture or dislocation of the left upper extremity. The patient has a low heart score, she has no risk factors for coronary artery disease. Differential Diagnosis Differential Diagnoses: The differential diagnosis associated with the presentation includes Cervical radiculopathy Cervical strain Thoracic outlet syndrome Muscle cramp ACS less likely Lab Data [facility] Lab Attestation statement: I reviewed the patient's lab results. No leukocytosis. The patient has a very mild normocytic anemia that is approximately around her baseline from January of this year. There was no left shift no significant chemistry abnormalities warranting dimension. She has a slight elevation of total bilirubin to 1.3 but no abdominal pain, nausea, vomiting. No abdominal tenderness on exam. 09/21/25 02:42 09/21/25 02:42 Labs: Lab Results 09/21/25 Range/Units 02:42 WBC 8.7 (4.8-10.8) X10*3/uL RBC 3.99 L (4.20-5.50) X10*6/uL Hgb 11.6 L (12.0-16.0) g/dl Hct 35.9 L (37.0-47.0) % MCV 90.0 (80.0-98.0) fL MCH 29.1 (27.0-33.0) pg MCHC 32.3 (31.0-35.0) g/dl RDW 13.6 (11.0-16.0) % Plt Count 169 (160-400) X10*3/uL MPV 13.5 H (9.4-12.3) fL Immature Gran % (Auto) Cancelled Neut % (Auto) Cancelled Lymph % (Auto) Cancelled Davison % (Auto) Cancelled Eos % (Auto) Cancelled Baso % (Auto) Cancelled Lymph # (Auto) Cancelled Davison # (Auto) Cancelled Eos # (Auto) Cancelled Baso # (Auto) Cancelled Abs Immat Gran (auto) Cancelled Absolute Neuts (auto) Cancelled Absolute Nucleated RBC 0.000 (0.0-0.012) X10*3/uL Nucleated RBC % (auto) 0.0 (0.0-0.2) /100WBC Neutrophils % (Manual) 50 (45-73) % Lymphocytes % (Manual) 39 (20-40) % Monocytes % (Manual) 7 (2-11) % Eosinophils % (Manual) 2 (0-4) % Basophils % (Manual) 2 (0-2) % Abs Neuts (Manual) 4.4 (2.0-8.3) X10*3/uL Lymphocytes # (Manual) 3.4 (1.2-4.9) X10*3/uL Monocytes # (Manual) 0.6 (0.1-1.2) X10*3/uL Eosinophils # (Manual) 0.2 (0.0-0.4) X10*3/uL Basophils # (Manual) 0.2 (0.0-0.2) X10*3/uL Platelet Estimate NORMAL (NORMAL) Plt Morphology Comment NORMAL RBC Morphology NORMAL Sodium 140 (135-145) mmol/L Potassium 3.5 (3.3-5.1) mmol/L Chloride 107 (96-108) mmol/L Carbon Dioxide 24 (22-29) mmol/L Anion Gap 13 (12-20) BUN 9 (9-16) mg/dL Creatinine 0.73 (0.5-1.4) mg/dL Estim Creat Clear Calc 83.3 Estimated GFR > 60 Random Glucose 96 (60-115) mg/dL Calcium 8.7 (8.4-10.2) mg/dL Total Bilirubin 1.3 H (0.0-1.0) mg/dL AST 22 (5-31) U/L ALT 17 (0-31) U/L Alkaline Phosphatase 55 (39-117) U/L Troponin I High Sens < 2.7 (<3.5-17.0) ng/L Total Protein 7.0 (6.5-8.0) g/dL Albumin 4.4 (3.5-5.0) g/dL Independent Interpretation I performed an independent interpretation of an: EKG (Normal sinus rhythm with a rate of 78 beats per minute. No ST segment elevation or depressions) Radiology Impression Discussion of test interpretation with radiology: I have reviewed the radiologist's reading. Radiologist Impression: Findings: Mild to moderate multilevel marginal osteophyte formation is seen. There is mild loss of anterior vertebral body height at C3, C4, and C5. Alignment is within normal limits. The prevertebral soft tissues appear normal. IMPRESSION: 1. [id number] degenerative changes in the cervical spine with mild loss of anterior vertebral body height from C3-C5. This document has been electronically signed by: Elias Herndon on 09/21/2025 06:19:57 Discharge Plan Discharge Clinical Impression: Cervical radiculopathy Patient Disposition: Home, Self-Care Instructions: Cervical Radiculopathy (ED) Additional Instructions: Your workup in the ER today was reassuring. Your symptoms are likely related to a pinched nerve in your neck. Your x-ray shows moderate degenerative changes and arthritis in your neck You may use ibuprofen/Tylenol for pain. Follow up with your primary doctor, return for new or worsening symptoms Prescriptions: New cyclobenzaprine 10 mg tablet 10 mg PO TID PRN (Reason: muscle spasm) Qty: 20 0RF No Action amoxicillin 875 mg tablet 875 mg PO BID Qty: 20 0RF polyethylene glycol 3350 [ClearLax] 17 gram/dose powder 17 g PO DAILY Qty: 119 0RF docusate sodium [Colace] 100 mg capsule 100 mg PO DAILY Qty: 30 0RF cefuroxime axetil 250 mg tablet 250 mg PO BID Qty: 10 0RF Referrals: Bella Lugo MD [Primary Care Provider, Family Practice] Stand Alone Forms: Work/School Release Print Language: Nepalese
[2025-09-21 04:03] LABS: Basophils Percent Manual 2 % (0-2); Eosinophils Percent Manual 2 % (0-4); Lymphocytes Percent Manual 39 % (20-40); Monocytes Percent Manual 7 % (2-11); Neutrophils Percent Manual 50 % (45-73); RBC Morphology NORMAL
[2025-09-21 04:04] LABS: Basophils Abs Manual 0.2 X10*3/uL (0.0-0.2); Eosinophils Absolute Manual 0.2 X10*3/uL (0.0-0.4); Lymphocytes Absolute Manual 3.4 X10*3/uL (1.2-4.9); Monocytes Absolute Manual 0.6 X10*3/uL (0.1-1.2); Platelet Count 169 X10*3/uL (160-400); White Blood Count 8.7 X10*3/uL (4.8-10.8)
[2025-09-21 04:13] LABS: Neutrophils Absolute Manual 4.4 X10*3/uL (2.0-8.3)
[2025-09-21 04:14] LABS: Alanine Aminotransferase 17 U/L (0-31); Albumin Level 4.4 g/dL (3.5-5.0); Alkaline Phosphatase 55 U/L (39-117); Anion Gap 13 (12-20); Aspartate Amino Transferase 22 U/L (5-31); Blood Urea Nitrogen 9 mg/dL (9-16); Calcium 8.7 mg/dL (8.4-10.2); Carbon Dioxide 24 mmol/L (22-29); Chloride 107 mmol/L (96-108); Creatinine Clr Calc Pharmacy 83.3; Estimated Glomerular Filt Rate > 60; Potassium 3.5 mmol/L (3.3-5.1); Sodium 140 mmol/L (135-145); Total Protein 7.0 g/dL (6.5-8.0)
[2025-09-21 06:00] VITALS: BP 111/62; PULSE 80; RESP 18; TEMP 36.8; O2SAT 100
[2025-09-21 06:40] VITALS: BP 111/62; PULSE 80; RESP 18; TEMP 36.8; O2SAT 100
== END 2025-09-21 06:41 | disposition home or self-care (01) ==
PROVIDERS: Emergency Provider Emergency Medicine; PCP Family Medicine
DX: M79.602 Pain in left arm (principal); R20.0 Anesthesia of skin; M54.2 Cervicalgia; M25.512 Pain in left shoulder
CPT/HCPCS: 36415; 72040; 73030; 80053; 84484; 85007; 85027; 93005; 99284; 99285

== ENCOUNTER → 2025-09-21 02:23 | Outpatient (BNV) | payer OTHER, SELFPAY | PROVIDERS: Emergency Provider Emergency Medicine; PCP Family Medicine; Visit Provider Internal Medicine Cardiovascular Disease | DX: M79.602 Pain in left arm (principal) | CPT/HCPCS: 93010 ==

== ENCOUNTER → 2025-09-21 03:45 | Outpatient (BNV) | payer OTHER, SELFPAY | PROVIDERS: Emergency Provider Emergency Medicine; PCP Family Medicine; Visit Provider Radiology Vascular & Interventional Radiology | DX: M54.2 Cervicalgia (principal); M25.512 Pain in left shoulder | CPT/HCPCS: 72040; 73030 ==